=== PATIENT | male | born 1995 | race Caucasian/White ===

== ENCOUNTER 2016-06-17 16:52 | Emergency (ER) | payer MEDICAID | END 2016-06-17 18:49 | disposition home or self-care (01) | DX: K59.00 Constipation, unspecified (principal); F17.200 Nicotine dependence, unspecified, uncomplicated ==

== ENCOUNTER 2019-06-09 12:55 | Emergency (ER) | payer MEDICAID ==
[2019-06-09 13:04] VITALS: BP 138/90
--- NOTE | 2019-06-09 13:42 | ED Physician Documentation ---
PD HPI OPHTHO - Stated complaint Stated Complaint: R EYE PX - Chief complaint Chief Complaint: Heent - History obtained from History obtained from: Patient (Working on a car yesterday, thinks a piece of metal is in the right eye. No visual deficit.) Review of Systems Constitutional: denies: Fever, Chills Eyes: denies: Loss of vision, Decreased vision Ears: denies: Loss of hearing, Ear pain Nose: denies: Rhinorrhea / runny nose, Congestion Throat: denies: Sore throat Cardiac: denies: Chest pain / pressure, Palpitations PD PAST MEDICAL HISTORY - Past Medical History Psych: ADD/ADHD - Past Surgical History Past Surgical History: No - Present Medications Home Medications: Ambulatory Orders Medication Instructions Recorded Confirmed Dextroamphetamine/Amphetamine 40 mg PO QAM 10/22/12 06/17/16 [Adderall Xr 20 mg Capsule] Erythromycin Base [Erythromycin 1 appful OP 5XD 7 Days #1 oint...g. 06/09/19 Ophthalmic Ointment] Hydrocodone/Acetaminophen 1 - 2 each PO Q6H PRN #7 tablet 06/09/19 [Hydrocodon-Acetaminophen 5-325] - Allergies Allergies/Adverse Reactions: Allergies Allergy/AdvReac Type Severity Reaction Status Date / Time No Known Drug Allergies Allergy Verified 06/09/19 13:01 - Social History Does the pt smoke?: Yes Smoking Status: Current every day smoker Does the pt drink ETOH?: No Does the pt have substance abuse?: Yes - Immunizations Immunizations are current?: Yes - POLST Patient has POLST: No PD ED PE NORMAL - Vitals Vital signs reviewed: Yes - General General: Alert and oriented X 3, No acute distress - HEENT HEENT: PERRL (Just inferolateral to the visual axis there is a small piece of iron with early rust ring on the right eye.) - Neck Neck: Supple, no meningeal sign, No bony TTP - Neuro Neuro: Alert and oriented X 3, Normal speech Results - Vitals Vitals: Vital Signs - 24 hr 06/09/19 13:01 Temperature 36.5 C Heart Rate 74 Respiratory 16 Rate Blood Pressure 138/90 H O2 Saturation 99 Oxygen O2 Source Room air Procedures - FB removal FB location: Other (Right cornea) FB removal preparation: Local anesthesia-specify (Topical proparacaine) Removal method: Other (Both a 30-gauge needle and moistened cotton Q-tip, I got most of it but there was still little residual rust.) FB removal aftercare: Patient tolerated well PD MEDICAL DECISION MAKING - ED course Complexity details: d/w performance consultant (Dr. Reyez will see him on Wednesday to see if he needs further removal of the rust ring.) Departure - Departure Disposition: Home, Self Care Clinical Impression: Corneal foreign body Qualifiers: Encounter type: initial encounter Laterality: right Qualified Code(s): T15.01XA - Foreign body in cornea, right eye, initial encounter Condition: Good Record reviewed to determine appropriate education?: Yes Instructions: ED Foreign Body Cornea W Rust Ring Follow-Up: Maged Reyez MD [Provider Admit Priv/Credential] - Within 3 Days (Call wednesday AM) Prescriptions: Erythromycin Base [Erythromycin Ophthalmic Ointment] 1 appful OP 5XD 7 Days #1 oint...g. Hydrocodone/Acetaminophen [Hydrocodon-Acetaminophen 5-325] 1 - 2 each PO Q6H PRN #7 tablet PRN Reason: pain Comments: There is a little bit of rust left in your eye, I could not get it out. Is reasonable to follow-up with a specialist to see if it needs to be removed. It is only a small amount. Return for new or worsening symptoms. Call Dr. Reyez's office first thing on Wednesday to arrange for an appointment that day. Forms: Activity restrictions
== END 2019-06-09 13:51 | disposition home or self-care (01) ==
LOC: ED 12:55
DX: T15.01XA Foreign body in cornea, right eye, initial encounter (principal); X58.XXXA Exposure to other specified factors, initial encounter; Y93.89 Activity, other specified; F17.200 Nicotine dependence, unspecified, uncomplicated
CPT/HCPCS: 65220; 99282; 99283